=== PATIENT | female | born 1955 | race Caucasian/White ===

== ENCOUNTER 2017-07-01 15:22 | Emergency (ER) | payer MEDICARE, MEDICAID ==
[~2017-07-01] VITALS: Ht 144.8 cm; Wt 76.0 kg
[~2017-07-01 15:22] MED LIST: ENALAPRIL10 MG OR; LASIX 20 MG TAB20 MG OR; LEVOTHYROXIN88 MC1 PO; LIPITOR10 M1 PO; LORATADINE10 M1 PO; MEDDOSEPAK PO; SYNTHROID75 MCG OR; VITAMIN D50000 UNT OR
[2017-07-01] MEDS ORDERED: METO25TAB PO (15:38)
[2017-07-01] MEDS ORDERED: ASPIRINCHW 81MG PO (15:38)
[2017-07-01] MEDS ORDERED: AMMONIUM LACTATE121 TOP (15:40)
[2017-07-01] MEDS ORDERED: IBUPROFEN600 MG PO (17:10)
[2017-07-01 17:20] VITALS: BP 138/88
== END 2017-07-01 17:20 | disposition home or self-care (01) ==
LOC: ED 15:22
DX: K08.89 Other specified disorders of teeth and supporting structures (principal); W01.0XXA Fall on same level from slipping, tripping and stumbling without subsequent striking against object, initial encounter; Y93.01 Activity, walking, marching and hiking; Y92.89 Other specified places as the place of occurrence of the external cause

== ENCOUNTER 2017-08-14 17:52 | Emergency (ER) | payer MEDICARE, MEDICAID ==
[~2017-08-14] VITALS: Ht 144.8 cm; Wt 76.0 kg
[~2017-08-14 17:52] MED LIST changes: +AMMONIUM LACTATE121 TOP; +ASPIRINCHW 81MG PO; +IBUPROFEN600 MG PO; +METO25TAB PO
[2017-08-14 20:53] LABS: HEMATOCRIT 42.1 % (37.0-47.0); HEMOGLOBIN 14.5 g/dl (12.0-16.0); IMMATURE GRANULOCYTES 1.1 % (0.0-1.0); MEAN CELL VOLUME 91.9 fL CALC (80.0-100.0); MEAN CORPUSCULAR HGB 31.7 pG CALC (26.0-32.0); MEAN CORPUSCULAR HGB CONC 34.4 g/L CALC (32.0-36.0); NEUT# 5.3 thou/uL (2.00-7.15); RED BLOOD COUNT 4.58 mill/uL (4.20-5.60)
[2017-08-14 21:18] LABS: ALBUMIN 3.8 g/dL (3.2-5.0); ALKALINE PHOSPHATASE 136 u/l (38-126); BILIRUBIN, TOTAL 0.2 mg/dL (0.0-1.4); BUN 17 mg/dL (8-23); BUN/CREATININE RATIO 24 (12-20 (CALC)); CARBON DIOXIDE 22 mmol/l (22-30); CHLORIDE 96 mmol/l (95-108); CREATININE 0.7 mg/dL (0.5-1.0); GFR > 60 ML/MIN (>=60 (CALC)); GFR FOR AFR.AMER. > 60 ML/MIN (>=60 (CALC)); POTASSIUM 4.4 mmol/l (3.5-5.1); SGOT/AST 32 u/l (9-36); SGPT/ALT 37 u/l (11-66); TOTAL PROTEIN 7.3 g/dL (6.3-8.2)
[2017-08-14 21:21] LABS: ANION GAP 16 (6-22 (CALC)); SODIUM 130 mmol/l (137-146)
[2017-08-14 21:29] LABS: URINE BILIRUBIN - DIPSTICK NEGATIVE (NEGATIVE); URINE BLOOD DIPSTICK NEGATIVE (NEGATIVE); URINE COLOR YELLOW; URINE GLUCOSE - DIPSTICK NEGATIVE (NEGATIVE); URINE KETONE NEGATIVE (NEGATIVE); URINE LEUK ESTERASE NEGATIVE (NEGATIVE); URINE NITRITE - DIPSTICK NEGATIVE (Negative); URINE PH 6.5 (4.5-8.0); URINE PROTEIN - DIPSTICK NEGATIVE (NEG-TRACE); URINE SPECIFIC GRAVITY 1.015; URINE UROBILINOGEN - DIPSTICK 0.2 E.U./dL (0.2)
[2017-08-14 21:30] LABS: URINE CLARITY CLEAR
[2017-08-14 21:55] VITALS: BP 149/76
== END 2017-08-14 21:55 | disposition home or self-care (01) ==
LOC: ED 17:52
PROVIDERS: Emergency Medicine
DX: R53.1 Weakness (principal); Q90.9 Down syndrome, unspecified; I10 Essential (primary) hypertension; R10.84 Generalized abdominal pain

== ENCOUNTER 2018-05-11 18:31 | Emergency (ER) | payer MEDICARE, MEDICAID ==
[~2018-05-11] VITALS: Ht 144.8 cm; Wt 73.0 kg
[~2018-05-11 18:31] MED LIST changes: +VITAMIN D50000 UNIT PO; -VITAMIN D50000 UNT OR
[2018-05-11] MEDS ORDERED: MIRTAZAPINE15 MG PO (19:36)
[2018-05-11] MEDS ORDERED: KEFLEX500 MG PO (19:36)
[2018-05-11 20:00] VITALS: BP 174/84
[2018-05-11] MEDS ORDERED: ZOLPIDEM5 M1 PO (20:04)
[2018-05-11] MEDS ORDERED: LEVOTHYROXIN75 MC1 PO (20:05)
[2018-05-11] MEDS ORDERED: ATORVASTATIN CA20 MG PO (20:07)
[2018-05-11] MEDS ORDERED: CELECOXIB200 MG PO (20:08)
== END 2018-05-11 20:00 | disposition home or self-care (01) ==
LOC: ED 18:31
DX: S80.862A Insect bite (nonvenomous), left lower leg, initial encounter (principal); W57.XXXA Bitten or stung by nonvenomous insect and other nonvenomous arthropods, initial encounter; Y92.009 Unspecified place in unspecified non-institutional (private) residence as the place of occurrence of the external cause

== ENCOUNTER 2018-07-15 12:40 | Inpatient (IN) | payer MEDICARE, MEDICAID ==
[~2018-07-15] VITALS: Ht 144.8 cm; Wt 82.0 kg
[~2018-07-15 12:40] MED LIST changes: +ATORVASTATIN CA20 MG PO; +CELECOXIB200 MG PO; +KEFLEX500 MG PO; +LEVOTHYROXIN75 MC1 PO; +MIRTAZAPINE15 MG PO; +ZOLPIDEM5 M1 PO
--- NOTE | 2018-07-15 12:40 | NUR ---
TO ROOM 11 VIA STRETCHER BY EMS
--- NOTE | 2018-07-15 13:15 | NUR ---
CAREGIVER REPORTS PT IS DIFFICULT TO OBTAIN USRINE SPECIMENS FORM. IT TOOK 2 DAYS TO GET ONE FOR HER PRIMARY CARE PROVIDER- JUST TAKEN THERE A COUPLE OF DAYS AGO. IS ON ANTIBIOTICS FOR UTI
[2018-07-15] MEDS ORDERED: TERBINAFINE250 MG PO (13:21)
[2018-07-15] MEDS ORDERED: MEMANTINE HCL10 MG PO (13:22)
[2018-07-15] MEDS ORDERED: Levaquin PO (13:23)
[2018-07-15 13:28] LABS: IMMATURE GRANULOCYTES 0.7 % (0.0-5.0); MEAN CELL VOLUME 94.6 fL CALC (80.0-100.0); MEAN CORPUSCULAR HGB CONC 33.8 g/L CALC (32.0-36.0); NEUT# 3.92 thou/uL (2.00-7.15); RED BLOOD COUNT 3.91 mill/uL (4.20-5.60); RED CELL DISTRI WIDTH 14.3 % (11.5-15.5)
--- NOTE | 2018-07-15 13:41 | NUR ---
DID NOT GIVE ZOFRAN. ENTERED ON WRONG PT.
[2018-07-15 13:45] LABS: HEMOGLOBIN 12.5 g/dl (12.0-16.0)
--- NOTE | 2018-07-15 13:45 | NUR ---
SAID SHE DOESN'T NEED TO PEE
[2018-07-15 14:09] LABS: ALKALINE PHOSPHATASE 113 u/l (38-126); ANION GAP 14 (6-22 (CALC)); BILIRUBIN, TOTAL 0.3 mg/dL (0.0-1.4); BUN 24 mg/dL (8-23); BUN/CREATININE RATIO 22 (12-20 (CALC)); CARBON DIOXIDE 26 mmol/l (22-30); CHLORIDE 100 mmol/l (95-108); CREATININE 1.1 mg/dL (0.5-1.0); GFR 50 ML/MIN (>=60 (CALC)); GFR FOR AFR.AMER. > 60 ML/MIN (>=60 (CALC)); LIPASE 43 u/l (23-300); POTASSIUM 4.2 mmol/l (3.5-5.1); SGOT/AST 76 u/l (9-36); SODIUM 135 mmol/l (137-146); TOTAL PROTEIN 6.1 g/dL (6.3-8.2)
--- NOTE | 2018-07-15 14:15 | NUR ---
PT STATES SHE IS UNABLE TO VOID. ENTERTAINMENT PRODUCTION PROFESSIONAL REQUESTED STRAIGHT CATH NOT BE DONE DUE TO THE AMOUNT OF EMOTIONALTRAUMA
--- NOTE | 2018-07-15 15:02 | NUR ---
WINDOWS SYSTEMS ENGINEER SAID THAT SHE SEEMS MORE HER NORMAL SELF SINCE ARRIVAL IN ER.... COLOR HAS IMPROVED AND MORE ALERT. SHE REPORTS ALZHEIMERS IS PROGRESSING TO THE POINT THAT SHE NEEDS 2 PERSON ASSIST WITH AMBULATION
--- NOTE | 2018-07-15 15:39 | NUR ---
BEDRESTING-SITTING UP-WATCHING TV
--- NOTE | 2018-07-15 15:45 | NUR ---
PT DID NOT WANT CHANGE TO HOSPITAL GOWN. SHE WANTS TO KEEP HER OWN CLOTHES ON.
--- NOTE | 2018-07-15 16:43 | NUR ---
CAREGIVER ASKED THAT PT NOT GO TO CT SCAN THE TABLE MOVES AND PT BECOMES AFRAID AND JUMPS OFF OF THE TABLE. SHE ONLY AGREED IF PT COULD BE SEDATED. DR TAPIA NOTIFIED
--- NOTE | 2018-07-15 16:51 | NUR ---
REPORT CALLED TO ROYAL PETERSEN
--- NOTE | 2018-07-15 17:12 | NUR ---
TO MS VIA STRETCHER
[2018-07-15 17:18] VITALS: BP 110/70
--- NOTE | 2018-07-15 17:20 | NUR ---
PT ARRIVED @ 1720, VIA STRETCHER, ACCOMPANINED BY TWO ER STAFF AND WOOD AND HARDWARE OUTFITTER, CAROLYN; PT SCREAMED DURING TRF FROM BED TO STRETCHER; MENTALLY CHALLENGE; RESP EVEN AND UNLABORED; ROOM AIR; TELE ON PLACE; VITALS STABLE; #20LAC, ZOSYN INFUSING WITHOUT DIFFICULTY; RASH NOTED TO BILAT ABD FOLDS; PICTURES TAKEN; NON PRODUCTIVE COUGH NOTED; +2 EDEMA TO BLE; ACTIVE BS; CALL JIMENEZ IN REACH; SEAN/CARD DOFFER WILL SPEND THE NIGHT WITH PT. NOW FEEDING PT.
[2018-07-15 19:37] VITALS: BP 101/57
--- NOTE | 2018-07-16 | NUR ---
PT AWAKE AT THIS TIME. LOOKING AROUNF THE ROON. NO NEEDS AT THIS TIME. CALL JIMENEZ IN REACH. WILL CONTINUE TO MONITOR.
[2018-07-16 00:11] LABS: URINE BILIRUBIN - DIPSTICK NEGATIVE (NEGATIVE); URINE BLOOD DIPSTICK NEGATIVE (NEGATIVE); URINE COLOR YELLOW; URINE GLUCOSE - DIPSTICK NEGATIVE (NEGATIVE); URINE KETONE NEGATIVE (NEGATIVE); URINE LEUK ESTERASE NEGATIVE (Negative); URINE NITRITE - DIPSTICK NEGATIVE (Negative); URINE PROTEIN - DIPSTICK NEGATIVE (NEG-TRACE); URINE UROBILINOGEN - DIPSTICK 0.2 E.U./dL (0.2)
[2018-07-16 00:14] LABS: URINE CLARITY CLEAR
[2018-07-16 00:47] VITALS: BP 107/70
--- NOTE | 2018-07-16 02:00 | NUR ---
PT RESTING IN BED WITH EYES CLOSED . NO NEEDS ATT THIS TIME. CALL JIMENEZ IN REACH. WILL CONTIUNE TO [facility].
--- NOTE | 2018-07-16 04:00 | NUR ---
PT RESTING IN BED WITH EYES CLOSED. SITTING UP AND HUNCHED FORWARD TO SLEEP. CAREGIVER SAYS THAT IS HOW SHE SLEEPS. NO S/S OF DISTRESS NOTED. CALL JIMENEZ IN REACH. WILL CONTINUE TO MONITOR.
[2018-07-16 04:22] VITALS: BP 105/65
[2018-07-16 05:31] LABS: HEMATOCRIT 35.9 % (37.0-47.0); HEMOGLOBIN 11.7 g/dl (12.0-16.0); IMMATURE GRANULOCYTES 1.9 % (0.0-5.0); MEAN CELL VOLUME 96.8 fL CALC (80.0-100.0); MEAN CORPUSCULAR HGB 31.5 pG CALC (26.0-32.0); MEAN CORPUSCULAR HGB CONC 32.6 g/L CALC (32.0-36.0); NEUT# 3.21 thou/uL (2.00-7.15); RED BLOOD COUNT 3.71 mill/uL (4.20-5.60); RED CELL DISTRI WIDTH 14.1 % (11.5-15.5)
[2018-07-16 05:34] LABS: ALKALINE PHOSPHATASE 110 u/l (38-126); AMYLASE < 30 u/l (30-110); ANION GAP 12 (6-22 (CALC)); BILIRUBIN, TOTAL 0.3 mg/dL (0.0-1.4); BUN 21 mg/dL (8-23); BUN/CREATININE RATIO 21 (12-20 (CALC)); CARBON DIOXIDE 28 mmol/l (22-30); CHLORIDE 104 mmol/l (95-108); GFR 56 ML/MIN (>=60 (CALC)); GFR FOR AFR.AMER. > 60 ML/MIN (>=60 (CALC)); LIPASE 38 u/l (23-300); MAGNESIUM 2.1 mg/dL (1.6-2.3); POTASSIUM 4.2 mmol/l (3.5-5.1); SGOT/AST 70 u/l (9-36); SODIUM 139 mmol/l (137-146)
--- NOTE | 2018-07-16 07:13 | NUR ---
REPORT RECEIVED FROM NICOLA JUDD; PT APPEARS TO BE SLEEPING; RESP EVEN AND UNLABORED; ALMOND BLANCHER OPERATOR AT BEDSIDE STATED PT "JUST FELL ASLEEP"
[2018-07-16 09:29] VITALS: BP 141/73
--- NOTE | 2018-07-16 09:55 | NUR ---
PT SITTING UP IN BED; PRODUCTIVE COUGH NOTED; IVF FLOWING WITHOUT DIFFICULTY; VITALS OBTAINED; TEMP AXILLARY 91.4; BP 141/73 OBTAINED FROM R LEG; HR 60; RESP 20; O2 99 ON ROOM AIR; TELE IN PLACE; MEDICATED PER EMAR; TOLERATED WELL; BUNDLE SORTER AT BEDSIDE; CALL JIMENEZ IN REACH.
[2018-07-16 11:15] VITALS: BP 130/68
--- NOTE | 2018-07-16 11:15 | NUR ---
PT ASSISTED ON BSC, BILINGUAL OPERATOR AND GROUP FITNESS MANAGER AT BEDSIDE; NO S/S OF DISTRESS NOTED; CALL JIMENEZ IN REACH.
[2018-07-16 15:10] VITALS: BP 164/88
[2018-07-16 16:45] LABS: TSH, 3RD GENERATION 17.1 uIU/mL (0.47 - 4.68)
--- NOTE | 2018-07-16 17:22 | NUR ---
PT SITTING IN CHAIR WITH CARE WORKER BY HER SIDE; RESP EVEN AND UNLABORED; PRODUCTIVE COUGH NOTED; MEDICATED PER EMAR; IVF INFUSING WITHOUT DIFFICULTY; CALL JIMENEZ IN REACH.
[2018-07-16 19:00] VITALS: BP 139/91
--- NOTE | 2018-07-16 19:15 | NUR ---
RECEIVED REPORY FROM DAY NURSE. PT UP TO THE COUCH WITH MAIL MESSENGER CONTRACTOR. ASLEEP AT THIS TIME. NO NEEDS FROM PT OR MAIL MESSENGER CONTRACTOR. CALL JIMENEZ IN REACH. WILL CONTINUE TO MONITOR.
--- NOTE | 2018-07-16 20:30 | NUR ---
PT READY TO GET INTO BED. PT UP TO BSC TO VOID. DUE TO CONTINUE LOW TEMP. TYMPANIC 92.4, RECTAL TEMP DONE AT THIS TIME RECTAL TEMP 95.5. PT BACK INTO BED WITH MAXIMUM ASSIST. ALMA HUGGER APPLIED ON MEDIUM HEAT. ASSESMENT COMPLETED AT THIS TIME(SEE INTERVENTIONS) LUNG SOUNDS DIMINSHED, HEART SOUNDS NORMAL, BOWEL SOUNDS ACTIVE,TRACE EDEMA TO LOWER EXTREMITIES. IV INFUSING WELL. NO NEEDS AT THIS TIME. CALL JIMENEZ IN REACH. WILL CONTINUE TO MONITOR.
[2018-07-17] VITALS (8 sets, daily range): BP systolic 88–160; BP diastolic 40–79
--- NOTE | 2018-07-17 05:30 | NUR ---
PT CLEANED OF LARGE AMOUNT OF URINE. RECTAL TEMP CHECKED AT THIS TIME 98.4. ALMA HUGGER REMOVED AND PT REPOTITIONED IN BED. NO NEEDS AT THIS TIME. CALL JIMENEZ IN REACH. WILL CONTINUE TO MONITOR.
[2018-07-17 06:30] LABS: HEMATOCRIT 37.2 % (37.0-47.0); HEMOGLOBIN 11.9 g/dl (12.0-16.0); MEAN CELL VOLUME 98.2 fL CALC (80.0-100.0); MEAN CORPUSCULAR HGB 31.4 pG CALC (26.0-32.0); PLATELET COUNT 143 thou/uL (130-400); RED BLOOD COUNT 3.79 mill/uL (4.20-5.60); RED CELL DISTRI WIDTH 14.6 % (11.5-15.5)
[2018-07-17 06:46] LABS: ALKALINE PHOSPHATASE 99 u/l (38-126); ANION GAP 12 (6-22 (CALC)); BILIRUBIN, TOTAL 0.3 mg/dL (0.0-1.4); BUN 19 mg/dL (8-23); BUN/CREATININE RATIO 17 (12-20 (CALC)); CARBON DIOXIDE 24 mmol/l (22-30); CHLORIDE 108 mmol/l (95-108); CREATININE 1.1 mg/dL (0.5-1.0); GFR 50 ML/MIN (>=60 (CALC)); GFR FOR AFR.AMER. > 60 ML/MIN (>=60 (CALC)); POTASSIUM 4.6 mmol/l (3.5-5.1); SGOT/AST 51 u/l (9-36); SODIUM 140 mmol/l (137-146); TOTAL PROTEIN 6.2 g/dL (6.3-8.2)
[2018-07-17 06:56] LABS: IMMATURE GRANULOCYTES 9.3 % (0.0-5.0); MANUAL DIFFERENTIAL YES
--- NOTE | 2018-07-17 07:05 | NUR ---
REPORT RECEIVED FROM NICOLA JUDD; PT SITTING UP IN BED AWAKE; RESP EVEN AND UNLABORED ON ROOM AIR; WILLOW WORKER AT BED SIDE;
--- NOTE | 2018-07-17 09:24 | NUR ---
PT SITTING UP IN BED WATCHING TV; RESP EVEN AND UNLABORED ON ROOM AIR; VITALS OBTAINED TEMP 96.9, RESP 20, PULSE 82, BP 127/50, O2 97; MEDICATED PER EMAR; GENERALIZED EDEMA NOTED; IVF INFUSING WITHOUT DIFFICULTY; SITE APPEARS HEALTHY; TELE IN PLACE SB 57 ON MONITOR; PARTIAL BATH GIVEN; MOD INCONTINENT URINE; ASSIST TO SOFA; WARM BLANKET PROVIDED; POLYMERIZATION SUPERVISOR AT BEDSIDE; CALL JIMENEZ IN REACH
--- NOTE | 2018-07-17 11:52 | NUR ---
PT SITTING UP IN SOFA; IFV INFUSHING, ZOSYN HUNG; SITE APPEARS HEALTHY; RESP EVEN AND UNLABORED; MEDICATED PER EMAR; WINE PASTEURIZER AT BEDSIDE; VOICE NO CONCERNS;
--- NOTE | 2018-07-17 12:43 | NUR ---
PT ASSISTED TO BSC, JAMAR CARE PROVIDED; BACK INTO BED WITH MAX ASSIST; MIDDLE SCHOOL SPANISH TEACHER AT BEDSIDE; IVF INFUSING WITHOUT DIFFICULTY;
--- NOTE | 2018-07-17 14:20 | NUR ---
PT IN BED RESTLESS MEDICATED WITH LORAZEPAM FOR MIDLINE PROCEDURE; PT TOLERATED WELL; AREA OPERATIONS MANAGER AT BEDSIDE
--- NOTE | 2018-07-17 14:55 | NUR ---
IN TO ATTEMPT MID-LINE PLACEMENT. UNABLE TO ADVANCE GUIDEWIRE THROUGH EXISTING HUB, SO CLEANED AND EXCHANGED HUB. RELABELED. FLUSHED EASILY /c BRISK BLOOD RETURN NOTED. WELL TOLERATED. Pt SCHEDULED TO GO TO Radiology IN A.M. FOR NEW PICC/MID-LINE.
--- NOTE | 2018-07-17 16:48 | NUR ---
ER TELE MONITOR CENTER CALLED ON PT'S LOW HR; DR SANTOS AWARE; HR NOW IN THE 60'S; NO S/S OF DISTRESS NOTED; ALCOHOL RUBBER AT BEDSIDE
--- NOTE | 2018-07-17 16:48 | NUR ---
PT APPEARS TO BE SLEEPING; RESP EVEN AND UNLABORED; TEMP 97.3 HR 60; MEDICATED PER EMAR; IV FOUND PARTIAL DISLODGE, LEAKING; REMOVE, CATH TIP INTACT; SITE APPEARS HEALTHY; ORDER FOR PIC LINE TOMORROW; DR SANTOS AWARE
--- NOTE | 2018-07-17 19:00 | NUR ---
RECEIVED REPORT FROM NURSE PAIGE, PATIENT IN BED, AWAKE NO DISCOMFORTS NOTED AT THIS TIME, CURRENTLY WATCHING MOVIE, SITTER WITH PATIENT, CALL LIGHT AT REACH
--- NOTE | 2018-07-17 20:00 | NUR ---
PATIENT ALERT TO SELF, DENIES PAIN OR DISCOMFORT AT THIS TIME, EVEN UNLABORED BREATHING ON TELE, WITH AN ONGOING IVF OF 0.9NACL X100CC/HR, INFUSING WELL ON RT ARM, SITTER WITH PATIENT, CALL LIGHT WITHIN REACH.
[2018-07-18] VITALS (7 sets, daily range): BP systolic 130–161; BP diastolic 68–88
--- NOTE | 2018-07-18 00:08 | NUR ---
PATIENT RESTING IN BED, NO DISCOMFORTS NOTED AT THIS TIME, WAS AGITATED EARLIER DURING CARE, CALMED DOWN AFTER CARE WAS GIVEN, CURRENTLY WATCHING CARTOONS, ORACLE HRMS DEVELOPER IN ROOM, WILL CONTINUE TO MONITOR.
--- NOTE | 2018-07-18 04:04 | NUR ---
RECEIVED A CALL FROM ED PATIENT HEART RATE WAS 36-37 THEN TO 49. PATIENT WAS SLEEPING AT THIS TIME, V/S TAKEN BP 148/82, HR 60, R19, TEMP 97.6. PATIENT WAS ASYMPTOMATIC. WILL CONTINUE TO MONITOR.
--- NOTE | 2018-07-18 04:51 | NUR ---
PATIENT RESTING IN BED, NO DISCOMFORTS NOTED AT THIS TIME, EVEN LABORED BREATHING, TELE READING SB 43. CONVERTING SUPERVISOR IN ROOM, WILL CONTINUE TO MONITOR.
[2018-07-18 05:45] LABS: HEMATOCRIT 33.1 % (37.0-47.0); HEMOGLOBIN 10.8 g/dl (12.0-16.0); MEAN CELL VOLUME 97.1 fL CALC (80.0-100.0); MEAN CORPUSCULAR HGB 31.7 pG CALC (26.0-32.0); MEAN CORPUSCULAR HGB CONC 32.6 g/L CALC (32.0-36.0); PLATELET COUNT 154 thou/uL (130-400); RED BLOOD COUNT 3.41 mill/uL (4.20-5.60); RED CELL DISTRI WIDTH 14.5 % (11.5-15.5)
[2018-07-18 05:59] LABS: ALKALINE PHOSPHATASE 88 u/l (38-126); ANION GAP 12 (6-22 (CALC)); BILIRUBIN, TOTAL 0.2 mg/dL (0.0-1.4); BUN 21 mg/dL (8-23); BUN/CREATININE RATIO 18 (12-20 (CALC)); CARBON DIOXIDE 25 mmol/l (22-30); CHLORIDE 108 mmol/l (95-108); CREATININE 1.1 mg/dL (0.5-1.0); GFR 50 ML/MIN (>=60 (CALC)); GFR FOR AFR.AMER. > 60 ML/MIN (>=60 (CALC)); MAGNESIUM 2.1 mg/dL (1.6-2.3); POTASSIUM 4.4 mmol/l (3.5-5.1); SGOT/AST 35 u/l (9-36); SODIUM 141 mmol/l (137-146); TOTAL PROTEIN 5.9 g/dL (6.3-8.2)
[2018-07-18 06:17] LABS: BAND 2 % (0-8); IMMATURE GRANULOCYTES 6.1 % (0.0-5.0); MANUAL DIFFERENTIAL YES
--- NOTE | 2018-07-18 06:24 | NUR ---
ER CALLED ABOUT PATIENTS HR DROPPING TO 35-36 BPM BUT NOT SUSTAINED PATIENT CURRENTLY SLEEPING, MANUALLY TOOK HR WAS AT 53 BPM AT THIS TIME, PER DAY SHIFT REPORT PATIENT WAS INTERMITTENTLY HAVING LOW HR AND DR IS ALREADY AWARE. WILL CONTINUE TO MONITOR.
--- NOTE | 2018-07-18 06:57 | NUR ---
CALLED DR. SANTOS ABOUT PATIENTS INTERMITTENT LOW HR, CURRENT HR 54BPM MANUALLY. NO NEW ORDERS MADE AT THIS TIME,
--- NOTE | 2018-07-18 07:10 | NUR ---
REPORT RECIEVED FROM IVONNE COLLAZO. PT IN BED RESTING. NO S/S OF DISTRESS. CALL LIGHT IN REACH. WILL CONTINUE TO MONITOR.
--- NOTE | 2018-07-18 08:45 | NUR ---
PT A/O X3. SPEECH IS SLIGHTLY GARBLED. RESP EVEN AND UNLABORED. LUNG SOUNDS DIMINSHED. NONPRODUCTIVE COUGH NOTED. TELE IN PLACE. BOWEL SOUNDS ACTIVE X4. STRONG RADIAL PULSES, WEAK PEDAL PULSES. #24 DAVIE NS @100. SITE APPEARS HEALTHY. +1 GENERALIZED EDEMA NOTED. ENCOURAGED ELEVATION OF EXTREMITIES. PT DENIES ANY PAIN OR NEEDS. CAREGIVER AT BEDSIDE. SAFETY PRECAUTIONS IN PLACE. CALL LIGHT IN REACH. WILL CONTINUE TO MONITOR.
--- NOTE | 2018-07-18 11:57 | NUR ---
PT RESTING IN BED. NO C/O PAIN OR NEEDS. CALL LIGHT IN REACH. CAREGIVER AT BEDISDE. WILL CONTINUE TO MONITOR.
--- NOTE | 2018-07-18 13:19 | NUR ---
PT APPEARS TO BE SLEEPING IN BED; RESP EVEN AND UNLABORED; CARDIOVASCULAR DISEASE SPECIALIST AT BEDSIDE; CALL JIMENEZ IN REACH.
--- NOTE | 2018-07-18 16:32 | NUR ---
PT SLEEPING IN BED. NO C/O PAIN OR NEEDS. CAREGIVER AT BEDSIDE. CALL LIGHT IN REACH. WILL CONTINUE TO MONITOR
--- NOTE | 2018-07-18 19:30 | NUR ---
REPORT GIVEN BY KRUNAL GORE. PATIENT AWKAE IN BED WATCHING TV WITH CAREGIVER PRESENT AT THE BEDSIDE. RESP EVEN AND UNLABORED, O2 2L VIA NC . LUNG SOUNDS DIMINISHED, BOWEL SOUNDS PRESENT, AND PULSES PRESENT X 4. PICC LINE DRESSING INTACT, NO REDNESS OR SWELLING PRESENT WITH IV FLUIDS INFUSING AT 100 ML/HR. GENERAL EDEMA PRESENT. PLAN OF CARE DISCUSSED WITH CAREGIVER. BOTH PATIENT AND CAREGIVER INFORMED TO CALL WITH ANY QUESTIONS OR CONCERNS.
--- NOTE | 2018-07-18 20:20 | NUR ---
HS MEDICATIONS GIVEN AND NEW BAG OF IV FLUIDS GIVEN. PATIENT TOLERATED WELL.
--- NOTE | 2018-07-18 23:31 | NUR ---
PATIENT RESTING IN BED AWAKE WATCHING TV. PATIENT'S FACE IS FLUSHED, TEMP TAKEN WAS 97.7. PATIENT WAS CLEANED UP AND PERICARE WAS PROVIDED. RESP EVEN AND UNLABORED. NO S/S OF DISTRESS NOTED.
--- NOTE | 2018-07-19 03:36 | NUR ---
PATIENT RESTING WITH EYES CLOSED. RESP EVEN AND UNLABORED. NO S/S OF DISTRESS NOTED. CAREGIVER AT BEDISDE.
[2018-07-19 04:50] VITALS: BP 178/82
[2018-07-19 04:52] LABS: HEMATOCRIT 33.9 % (37.0-47.0); HEMOGLOBIN 10.9 g/dl (12.0-16.0); MEAN CELL VOLUME 98.5 fL CALC (80.0-100.0); MEAN CORPUSCULAR HGB 31.7 pG CALC (26.0-32.0); MEAN CORPUSCULAR HGB CONC 32.2 g/L CALC (32.0-36.0); PLATELET COUNT 149 thou/uL (130-400); RED BLOOD COUNT 3.44 mill/uL (4.20-5.60); RED CELL DISTRI WIDTH 14.8 % (11.5-15.5)
[2018-07-19 05:13] LABS: BILIRUBIN, TOTAL 0.2 mg/dL (0.0-1.4); CREATININE 1.2 mg/dL (0.5-1.0); MAGNESIUM 2.1 mg/dL (1.6-2.3)
[2018-07-19 05:20] LABS: IMMATURE GRANULOCYTES 13.2 % (0.0-5.0)
[2018-07-19 05:21] LABS: BAND 2 % (0-8); MANUAL DIFFERENTIAL YES
[2018-07-19 05:53] VITALS: BP 155/80
[2018-07-19 07:50] VITALS: BP 150/69
--- NOTE | 2018-07-19 07:50 | NUR ---
ASSESSMENT IS COMPLETED: PT SI RELAXING IN BED CAREGIVER IN THE ROOM. IV SITE IS FREE FROM REDNESS OR EDEMA. HR IS REG,PULSES ARE STRONG X4, ABD IS SOFT WITH ACTIVE BS. TELE MONITOR IN PLACE. CONTINUE TO OSBERVE AND MONITOR.
--- NOTE | 2018-07-19 11:10 | NUR ---
IN TO VISIT WITH PT. WILL KEEP ONE MORE DAY , WILL TRY AND SEND HOME TOMORROW CONTINUE TO OBSERVE AND MONITOR
[2018-07-19 11:57] VITALS: BP 167/81
--- NOTE | 2018-07-19 12:30 | NUR ---
PT IS SITTING ON THE BSC, CAREGIVER IN THE ROOM. IV SITE IS FREE FROM REDNESS OR EDEMA. CONTINUE TO OSBERVE AND MONITOR.
[2018-07-19 15:33] VITALS: BP 155/87
--- NOTE | 2018-07-19 16:15 | NUR ---
PT IS WATCHING TV WITH CAREGIVER. IV SITE IS FREE FROM REDNESS OR EDEMA.
--- NOTE | 2018-07-19 19:10 | NUR ---
BEDSIDE REPORT RECEIVED FROM NICOLA LOREDO. PT SITTING UP WATCHING A MOVIE WITH CAREGIVER AT BEDSIDE. PT ALERT WITH NORMAL MENTATION FOR HER. RESPIRATIONS EVEN AND UNLABORED ON ROOM AIR. BLOOD PRESSURE ELEVATED. PLAN OF CARE REVIEWED WITH PT AND MUSEUM TOUR GUIDE. ENCOURAGED TO VERBALIZE CONCERNS. STATES UNDERSTANDING. SAFETY MEASURES IN PLACE. CALL LIGHT WITHIN REACH.
[2018-07-19 19:45] VITALS: BP 186/87
--- NOTE | 2018-07-19 20:45 | NUR ---
NEW ORDERS RECEIVED FROM DR. SANTOS FOR ELEVATED BLOOD PRESSURE; AMLODIPINE GIVEN AT THIS TIME; WILL REASSESS BP. NYSTATIN POWDER ALSO APPLIED UNDER ABDOMINAL FOLDS; MILD REDNESS PRESENT, BUT NOODLE PRESS OPERATOR STATES THAT IT IS MUCH IMPROVED.
[2018-07-20 00:05] VITALS: BP 178/92
--- NOTE | 2018-07-20 00:47 | NUR ---
PT AWAKE AND ALERT; CAREGIVER REMAINS AT BEDSIDE. SCHEDULED ROBITUSSIN GIVEN FOR COUGH. IV FLUIDS INFUSING WITHOUT DIFFICULTY; DAVIE PICC LINE DRESSING CDI AND APPEARS HEALTHY; FLUSHES WITH GOOD BLOOD RETURN. ABT INFUSING NOW. INCONTINENT OF LARGE AMOUNT OF URINE AND LINENS CHANGED. ONLY REQUEST AT THIS TIME IS COLORING BOOK AND SLINKY FROM HOME. SAFETY MEASURES IN PLACE. CALL LIGHT WITHIN REACH.
--- NOTE | 2018-07-20 01:19 | NUR ---
BLOOD PRESSURE REMAINS ELEVATED; ULTRAM GIVEN FOR GENREALIZED DISCOMFORT. WILL REASSESS BP.
--- NOTE | 2018-07-20 02:00 | NUR ---
TELE MONITOR NOTIFIED NURSE THAT HEART RATE DECREASED TEMPORARILY INTO THE 30'S; PT IS SLEEPING AND ASYMPTOMATIC.
[2018-07-20 02:30] VITALS: BP 155/90
--- NOTE | 2018-07-20 02:45 | NUR ---
BLOOD PRESSURE IMPROVED. PT ASSISTED TO BSC BY INJECTION MOLDING PROCESS TECHNICIAN TO VOID. PT SHOUTS DURING CARE; CAREGIVER OF 15 YEARS STATES THAT THIS IS NORMAL BEHAVIOR WHEN SHE IS RECEIVING CARE. PT FREQUENTLY ASKS, "IS THIS GOING TO HURT?" PT FREQUENTLY REASSURED AND SHE SMILES AND STATES, "I LOVE YOU."
[2018-07-20 04:15] VITALS: BP 134/81
--- NOTE | 2018-07-20 04:21 | NUR ---
PT ASLEEP AT THIS TIME WITH NO SIGNS OF DISTRESS. RESPIRATIONS EVEN AND UNLABORED ON ROOM AIR. SAFETY MEASURES IN PLACE. CALL LIGHT WITHIN REACH.
--- NOTE | 2018-07-20 06:00 | NUR ---
0600 MEDICATIONS ADMINISTERED; PT TOOK WELL. DAVIE SINGLE LUMEN PICC LINE FLUSHED; NO BLOOD RETURN AT THIS TIME. SITE HAS SOME BRUISING AROUND INSERTION SITE. ARM DOES NOT APPEAR SWOLLEN OR LARGER IN COMPARISION TO LEFT UPPER ARM.
--- NOTE | 2018-07-20 07:38 | NUR ---
REPORT RECEIVED FROM IVONNE GUAN; PT SITTING UP ON BSC; RESP EVEN AND UNLABRED; WILLOWER AND FISH PROCESSING SUPERVISOR AT BED SIDE;
[2018-07-20 09:29] VITALS: BP 123/78
--- NOTE | 2018-07-20 09:36 | NUR ---
PT SITTING UP IN CHAIR WATCHING A MOVIE; TELE IN PLACE; IVF NS @100 INFUSING WITHOUT DIFFICULTY; SITE APPEARS HEALTHY; TRACE EDEMA NOTED TO BLE; NO S/S OF DISTRESS NOTED; MEDICATED PER EMAR; ELEVATOR TROUBLESHOOTER AT BEDSIDE; WILL CONTINUE TO MONITOR.
--- NOTE | 2018-07-20 11:39 | NUR ---
DR SANTOS AT BEDSIDE TO DISCUSS POC; SWITCH COUPLER AT BEDSIDE; MEDICATED PER EMAR;
[2018-07-20 12:00] VITALS: BP 138/76
[2018-07-20] MEDS ORDERED: DOXYCYCL HYC100 MG PO (14:55)
--- NOTE | 2018-07-20 15:32 | NUR ---
DC INSTRUCTIONS GIVEN TO TEACHER OF FAMILY AND CONSUMER SCIENCE; IVONNE CAMPBELL REMOVED MIDLINE, CATH TIP INTACT; TOLERATED WELL; ALL BELONGINS SENT WITH PT; LEFT VIA W/C BY PRACTICE ASSISTANT AND TEACHER OF FAMILY AND CONSUMER SCIENCE IN STABLE CONDITION;
== END 2018-07-20 15:37 | DRG 193 ==
LOC: ED 12:40 → ED-I 15:31 → ED 15:42 → MS2 15:43
PROVIDERS: Family Medicine; Nurse Practitioner Family; ADMIT Internal Medicine Nephrology; ATTEND Internal Medicine Nephrology
PROC: 05HB33Z Insertion of Infusion Device into Right Basilic Vein, Percutaneous Approach (ICD-10-PCS; principal; 2018-07-18)
PROC: B51MYZA Fluoroscopy of Right Upper Extremity Veins using Other Contrast, Guidance (ICD-10-PCS; 2018-07-18)
DX: J18.9 Pneumonia, unspecified organism (principal); G93.41 Metabolic encephalopathy; N17.9 Acute kidney failure, unspecified; I12.9 Hypertensive chronic kidney disease with stage 1 through stage 4 chronic kidney disease, or unspecified chronic kidney disease; N18.3 Chronic kidney disease, stage 3 (moderate); Q90.9 Down syndrome, unspecified; I95.9 Hypotension, unspecified; G30.0 Alzheimer's disease with early onset; F02.80 Dementia in other diseases classified elsewhere, unspecified severity, without behavioral disturbance, psychotic disturbance, mood disturbance, and anxiety; E03.9 Hypothyroidism, unspecified; E78.5 Hyperlipidemia, unspecified; E83.51 Hypocalcemia; I45.9 Conduction disorder, unspecified; Y95 Nosocomial condition
CPT/HCPCS: G0378; J1650; J2060

== ENCOUNTER 2018-08-23 11:27 | Observation (INO) | payer MEDICARE, MEDICAID ==
[~2018-08-23] VITALS: Ht 144.8 cm; Wt 85.0 kg
[~2018-08-23 11:27] MED LIST changes: +DOXYCYCL HYC100 MG PO; +Levaquin PO; +MEMANTINE HCL10 MG PO; +TERBINAFINE250 MG PO
--- NOTE | 2018-08-23 11:30 | NUR ---
PT ARRIVED VIA EMS IN NO DISTRESS. VERBALLY RESPONSIVE TO NAME. TONGUE PROTRUDING AND DRY MUSOUS MEMBRANES
--- NOTE | 2018-08-23 11:40 | NUR ---
THIS IS A FEMALE WITH HX OF DOWNS SYNDROE THAT COMES FOR WEAKNESS OF OVER 1 WEEK PER CAREGIVERS. PT HASNT BEEN TAKING MEDICATIONS FOR SEVERAL DAYS, CARE GIVERS ALSO STATES PT HAS HAD GENERALIZED WEAKNESS FOR OVER A MONTH SINCE COMING HOME FROM HOSPITAL A MONTH AGO WITH PNEUMONIA, STATES HASNT WANTED TO GET UP AND WALK OR FEED HERSELF. SHE IS COMING IN FOR SUSPECTED FAILURE TO THRIVE.
--- NOTE | 2018-08-23 11:45 | NUR ---
PEOPLE FROM [facility] STATES THEY DONT FEEL THAT PT IS WHERE SHE SHOULD BE, THEY THINK SHE NEEDS TO BE IN A HIGHER LEVEL CARE. STATES THEY HAVE BEEN TALKING TO SOMEONE ABOUT A [facility] OR HOSPICE BED BUT NOTHING HAS BEEN DECIDED YET.
[2018-08-23] MEDS ORDERED: ZOLPIDEM5 M1 PO (11:51)
[2018-08-23 11:58] LABS: HEMATOCRIT 38.9 % (37.0-47.0); HEMOGLOBIN 12.2 g/dl (12.0-16.0); IMMATURE GRANULOCYTES 2.9 % (0.0-5.0); MEAN CELL VOLUME 99.7 fL CALC (80.0-100.0); MEAN CORPUSCULAR HGB 31.3 pG CALC (26.0-32.0); MEAN CORPUSCULAR HGB CONC 31.4 g/L CALC (32.0-36.0); NEUT# 2.82 thou/uL (2.00-7.15); RED BLOOD COUNT 3.9 mill/uL (4.20-5.60)
--- NOTE | 2018-08-23 12:21 | NUR ---
PT RESTING QUIETLY ON STRETCHER, NO SIGNS OF DISTRESS NOTED AT THIS TIME
[2018-08-23 12:24] LABS: ALBUMIN 3.1 g/dL (3.2-5.0); BILIRUBIN, TOTAL 0.3 mg/dL (0.0-1.4); CREATININE 1.4 mg/dL (0.5-1.0); TOTAL PROTEIN 6.2 g/dL (6.3-8.2)
[2018-08-23 12:25] LABS: POTASSIUM 5.3 mmol/l (3.5-5.1)
--- NOTE | 2018-08-23 12:44 | NUR ---
CAREGIVERS REMAIN AT BEDSIDE. PT VERY UPSET AND YELLING WHEN TRYING TO OBTAIN URINE, BUT CALMED DOWN DIRECTLY AFTERWARDS. IV FLUIDS INFUSING
[2018-08-23 13:16] LABS: URINE BILIRUBIN - DIPSTICK NEGATIVE (NEGATIVE); URINE BLOOD DIPSTICK NEGATIVE (NEGATIVE); URINE COLOR YELLOW; URINE GLUCOSE - DIPSTICK NEGATIVE (NEGATIVE); URINE KETONE NEGATIVE (NEGATIVE); URINE LEUK ESTERASE NEGATIVE (NEGATIVE); URINE NITRITE - DIPSTICK NEGATIVE (Negative); URINE PH 5.5 (4.5-8.0); URINE PROTEIN - DIPSTICK NEGATIVE (NEG-TRACE); URINE UROBILINOGEN - DIPSTICK 0.2 E.U./dL (0.2)
--- NOTE | 2018-08-23 13:44 | NUR ---
PT RESTING QUIETLY ON STRETCHER, WARM BLANKET GIVEN, CALL LIGHT IN REACH, SIDE RAILS UP, VITAL SIGNS STABLE
--- NOTE | 2018-08-23 14:12 | NUR ---
SIPS OF WATER GIVEN PER PT REQUEST.
--- NOTE | 2018-08-23 15:51 | NUR ---
VITAL SIGNS REMAIN STABLE , CAREGIVERS UPDATED ABOUT ROOM STATUS, D5 1/2 INFUSING, PT WATCHING TV.
--- NOTE | 2018-08-23 16:25 | NUR ---
INFORMED CAREGIVER THAT PT IS TO BE NPO., SINCE THEY KEEP ASKING TO FEED HER OR GIVE HER SOMETHING TO DRINK. CAREGIVERS WILL SPEND THE NIGHT WITH PT.
--- NOTE | 2018-08-23 19:00 | NUR ---
AT BEDSIDE. PT RESTING. IV POSITIONAL. INFUSING IN RIGHT AC. SITE GOOD.
--- NOTE | 2018-08-23 20:09 | NUR ---
PT GIVEN WAS ON BEDPAN...WITH NO RESULTS. GIVEN BLANKET. PROVIDER AT BEDSIDE.
--- NOTE | 2018-08-23 20:21 | NUR ---
REPORT TO ROSALINDA/MED SURG
[2018-08-23 20:30] VITALS: BP 133/74
--- NOTE | 2018-08-23 20:30 | NUR ---
PT ARRIVED VIA STRETCHER ACCOMPAINED BY CAREGIVER AND ER STAFF. PT ALERT TO SELF WITH CONFUSION NOTED. REDDNESS NOTED TO SACRUM BARRIER CREAM APPLIED. SKIN INTACT. TRACE EDEMA NOTED IN BLE. IV SITE APPEARS HEALTHY WITH IV FLUIDS INFUSING WITHOUT DIFFICULTY. CAREGIVER ANSWERED QUESTIONS FOR ASSESSMENT. PT DENIES ANY PAIN OR DISCOMFORT. POC DISCUSSED. CALL LIGHT WITHIN REACH. WILL CONTINUE TO MONITOR.
--- NOTE | 2018-08-23 21:46 | NUR ---
COT PROVIDED TO CAREGIVER AT THIS TIME.
[2018-08-24 00:03] VITALS: BP 137/80
--- NOTE | 2018-08-24 01:23 | NUR ---
PT RESTING IN BED WITH EYES CLOSED. NO S/S OF DISTRESS NOTED. CAREGIVER AT BEDSIDE. CALL LIGHT WITHIN REACH. WILL CONTINUE TO MONITOR.
--- NOTE | 2018-08-24 04:15 | NUR ---
IV SITE APPEARS SWOLLEN. CATHETER INFILTRATED. PT TOUCHING TUBING PICKING AT DRESSING. IV SITE DISCONTINUED. ARM ELEVATED ON PILLOW AND WARM COMPRESS APPLIED. PT DENIES ANY PAIN OR DISCOMFORT. CRIES OUT IN FEAR, CALM REASSURANCE FOR NURSE AND CAREGIVER. NEW IV STARTED X1 ATTEMPT.PT TOLERATED WELL.
[2018-08-24 04:17] VITALS: BP 134/85
--- NOTE | 2018-08-24 06:10 | NUR ---
PT NOT VOID NOTED DURING SHIFT. BLADDER SCANNED SHOWING 750ML IN BLADDER. PT DOES NOT FEEL NEED TO VOID AT THIS TIME. NOTIFIED DR. SANTOS. NEW ORDER FOR SCHULER CATHETER. SCHULER CATHETER PLACED USING STERILE TECHNIQUE. 900ML OUT AT THIS TIME. PT TOLERATED WELL. WILL CONTINUE TO MONITOR.
[2018-08-24 07:27] VITALS: BP 140/82
--- NOTE | 2018-08-24 07:30 | NUR ---
REPORT RECEIVED FROM NICOLA TELLEZ. PT IN SEMI-FOWLERS. DENIES PAIN. REPORTING OF CONCERNS ENCOURAGED. MENTAL DELAY NOTED. CAREGIVER AT BEDSIDE TO ASSIST W/ COMFORT AND REASSSURANCE. PT RESISTANT TO QUESTIONING AND VS. PT RE-ORIENTED TO SITUATION.
[2018-08-24 08:09] LABS: HEMATOCRIT 38.4 % (37.0-47.0); HEMOGLOBIN 11.9 g/dl (12.0-16.0); IMMATURE GRANULOCYTES 2.1 % (0.0-5.0); NEUT# 3.45 thou/uL (2.00-7.15); RED BLOOD COUNT 3.84 mill/uL (4.20-5.60); RED CELL DISTRI WIDTH 15.7 % (11.5-15.5)
[2018-08-24 08:20] LABS: ALBUMIN 3.1 g/dL (3.2-5.0); ALKALINE PHOSPHATASE 121 u/l (38-126); AMYLASE 56 u/l (30-110); ANION GAP 14 (6-22 (CALC)); BILIRUBIN, TOTAL 0.2 mg/dL (0.0-1.4); BUN 31 mg/dL (8-23); BUN/CREATININE RATIO 28 (12-20 (CALC)); CARBON DIOXIDE 27 mmol/l (22-30); CHLORIDE 101 mmol/l (95-108); CREATININE 1.1 mg/dL (0.5-1.0); GFR 50 ML/MIN (>=60 (CALC)); GFR FOR AFR.AMER. > 60 ML/MIN (>=60 (CALC)); LIPASE 90 u/l (23-300); MAGNESIUM 2.1 mg/dL (1.6-2.3); POTASSIUM 4.5 mmol/l (3.5-5.1); SGOT/AST 34 u/l (9-36); SODIUM 136 mmol/l (137-146); TOTAL PROTEIN 6.3 g/dL (6.3-8.2)
--- NOTE | 2018-08-24 13:30 | NUR ---
DR. SANTOS IN TO SEE PT. CAREGIVER AT BEDSIDE. PLAN OF CARE UPDATED. HOSPICE CONSULT AGREED UPON.
[2018-08-24 16:05] VITALS: BP 115/51
--- NOTE | 2018-08-24 17:37 | NUR ---
DOUBLE END TRIMMER, ЕЛЕНА, AT BEDSIDE TO DISCUSS CONSULT [facility] SEAN.
--- NOTE | 2018-08-24 19:03 | NUR ---
REPORT FROM DEVORA CORONADO. PT NOTED TO BE SITTING UP IN BED WITH CAREGIVER IN ROOM. PT EATING FOOD CAREGIVER BROUGHT. IV SITE APPEARS HEALTHY WITH IVF INFUSING WITHOUT DIFFICULTY. SCHULER PATENT AND DRAINING TO GRAVITY. FLOATLIGHT LOADING SUPERVISOR IN PLACE. PT DENIES ANY PAIN OR DISCOMFORT. CALL LIGHT WITHIN REACH. WILL CONTINUE TO MONITOR.
[2018-08-24 19:28] VITALS: BP 128/71
--- NOTE | 2018-08-24 23:48 | NUR ---
PT SITTING UP IN BED. ALERT TO SELF. DENIES ANY PAIN OR DISCOMFORT. VS OBTAINED. IV FLUIDS INFUSING WITHOUT DIFFICULTY. IV SITE APPEARS HEALTHY. CALL LIGHT WITHIN REACH. WILL CONTINUE TO MONITOR.
[2018-08-24 23:49] VITALS: BP 131/78
[2018-08-25] VITALS (7 sets, daily range): BP systolic 105–171; BP diastolic 53–91
--- NOTE | 2018-08-25 01:09 | NUR ---
BED BATH AND LINEN CHANGE PROVIDED AT THIS TIME. PT TOLERATED WELL.
--- NOTE | 2018-08-25 05:26 | NUR ---
PT RESTING IN BED WITH EYES OPEN. CAREGIVER AT BEDSIDE. IVF INFUSING WITHOUT DIFFICULTY. CALL LIGHT WITHIN REACH. WILL CONTINUE TO MONITOR.
--- NOTE | 2018-08-25 08:00 | NUR ---
PT SITTING UP IN BED WITH EYES OPEN, ALERT TO SEFL; VITALS OBTAINED; IVF INFUSING WITHOUT DIFFICULTY, SITE APPEARS HEALTHY; RESPOITION PT; SCHULER DRAINING TO GRAVITY CLEAR, YELLOW URINE; TELE IN PLACE; SAND DIGGER AT BEDSIDE TRYING TO FEED PT; CALL JIMENEZ IN REACH; WILL CONTINUE TO MONITOR.
--- NOTE | 2018-08-25 10:55 | NUR ---
PT SITTING UP IN BED, ACADEMIC VICE PRESIDENT AT BEDSIDE OBTAINING VITALS; TAB MACHINE OPERATOR PRESENT; NO S/S OF DISTRESS NOTED; SCHULER PATENT DRAING CLEAR, YELLOW URINE; CALL JIMENEZ IN REACH.
--- NOTE | 2018-08-25 13:00 | NUR ---
PT SCREAMING, MEDICATED WITH ATIVAN; LG LOOSE BM; DID JAMAR CARE; SCHULER PATENT; AIRCRAFT PARTS ASSEMBLER AT BEDSIDE.
--- NOTE | 2018-08-25 15:37 | NUR ---
PT LAYING IN BED APPEARS TO BE SLEEPING; SHOP DIRECTOR AT BEDSIDE TO OBTAIN VITALS; SCHULER PATENT, DRAINING TO GRAVITY; SPARE PERSON PRESENT; NO S/S OF DISTRESS NOTED;
--- NOTE | 2018-08-25 19:00 | NUR ---
RECEIVED REPORT FROM DAY NURSE. PT ASLEEP AT THIS TIME. RESP EVEN AND UNLABORED. CALL JIMENEZ IN REACH. WILL CONTINUE TO MONITOR.
--- NOTE | 2018-08-25 21:19 | NUR ---
PT RESTING IN BED WITH EYES CLOSED. CAREGIVER AT BEDSIDE. WAKES TO VERBAL STIMULI. PT IS ORIENTED TO SELF ONLY. ASSESMENT COMPLETED AT THIS TIME. IV INFUSING WELL. SCHULER CATH DRAINING TO GRAVITY, CLEAR YELLOW URINE. NO NEEDS AT THIS TIME. CALL JIMENEZ IN REACH. WILL CONTINUE TO MONITOR.
--- NOTE | 2018-08-26 | NUR ---
PT RESTING IN BED WITH EYES CLOSED. NO S/S OF DISTRESS NOTED. CAREGIVER AT BEDSIDE. CALL JIMENEZ IN REACH. WILL CONTINUE TO MONITOR.
--- NOTE | 2018-08-26 04:00 | NUR ---
PT RESTING IN BED WITH EYES CLOSED. NO S/S OF DISTRESS NOTED. CAREGIVER AT BED SIDE.
[2018-08-26 05:13] VITALS: BP 112/57
--- NOTE | 2018-08-26 07:21 | NUR ---
REPORT RECEIVED FROM DUTCH; PT APPEARS TO BE SLEEPING WITH EYES CLOSED; OVERHEAD LINE WORKER PRESENT;
[2018-08-26 08:45] VITALS: BP 96/41
--- NOTE | 2018-08-26 09:04 | NUR ---
ASSESSMENT COMPLETED; PT SLEPT THROUGHOUT ASSESSMENT; TELE IN PLACE; IVF D5-1/2 @25CC/HR INFUSING WITHOUT DIFFICULTY; SITE APPEARS HEALTHY; SCHULER DRAINING TO GRAVITY, CLEAR, ELIANE URINE; LEG STRAP INTACT; NO S/S OF DISTRESS NOTED; CAREGIVER SLEEPING AT BEDSIDE. BED IN LOW LOCKED POSITION. WILL CONTINUE TO MONITOR.
--- NOTE | 2018-08-26 11:26 | NUR ---
PT APPEARS TO BE SLEEPING, RESP EVEN AND UNLABORED; COLOR MAKING SUPERVISOR AT BEDSIDE TO OBTAIN VITALS; SCHULER PATENT, DRAINING TO GRAVITY; IV SITE APPEARS HEALTHY; INDUSTRIAL WASTE INSPECTOR AT BEDSIDE.
[2018-08-26 15:49] VITALS: BP 114/64
--- NOTE | 2018-08-26 16:05 | NUR ---
PT SEEMS AWAKE, REPOSITION ON L SIDE; ORAL CARE PROVIDED; FLUIDS GIVEN BY FRUIT CULLER; PRODUCTIVE COUGH NOTED BUT NOT ABLE TO BRING UP ANY FLEM; IV PATENT; SCHULER EMPTIED 125CC CLEAR, ELIANE URINE; BOTTOM REDDENED BUT NOT OPEN, PICTURE TAKEN; WILL CONTINUE TO MONITOR.
--- NOTE | 2018-08-26 19:00 | NUR ---
RECEIVED REPORT FROM DAY NURSE. PT RESTING IN BED IN HIGH FOWLERS RESTING IN BED. CAREGIVER AT BED SIDE. NO S/S OF DISTRESS. WILL CONTINUE TO MONITOR.
--- NOTE | 2018-08-26 20:46 | NUR ---
PT RESTING IN BED. RESPONDS WHEN YOU ASK HER HOW SHE IS AND IF SHE NEEDS ANYTHING, CAREGIVER AT BEDSIDE. ASSESMENT COMPLETED AT THIS TIME. SCHULER CATH DRAINING CLEAR YELLOW URINE. IV INFUSING WELL. PT RESP. EVEN AND UNLABORED. NO NEEDS A THIS TIME. CALL JIMENEZ IN REACH. WILL CONTINUE TO MONITOR.
[2018-08-26 20:48] VITALS: BP 116/69
[2018-08-26 23:38] VITALS: BP 147/70
--- NOTE | 2018-08-27 00:51 | NUR ---
PT AGGITATED AND YELLING AFTER TURN AND MOUTH CARE. MEDICATED FOR AGITATION AT THIS TIME PER CAREGIVERS REQUEST. CALL JIMENEZ IN REACH. WILL CONTINUE TO MONITOR.
--- NOTE | 2018-08-27 04:00 | NUR ---
PT RESTING IN BED WITH EYES CLOSED. NO S/S OF DISTRESS NOTED. CALL JIMENEZ IN REACH. WILL CONTINUE TO MONITOR.
[2018-08-27 04:49] VITALS: BP 134/67
[2018-08-27 05:48] LABS: ANION GAP 9 (6-22 (CALC)); BUN 13 mg/dL (8-23); BUN/CREATININE RATIO 15 (12-20 (CALC)); CARBON DIOXIDE 28 mmol/l (22-30); CHLORIDE 101 mmol/l (95-108); CREATININE 0.9 mg/dL (0.5-1.0); GFR > 60 ML/MIN (>=60 (CALC)); GFR FOR AFR.AMER. > 60 ML/MIN (>=60 (CALC)); HEMOGLOBIN 10.4 g/dl (12.0-16.0); IMMATURE GRANULOCYTES 1.3 % (0.0-5.0); MAGNESIUM 1.9 mg/dL (1.6-2.3); MEAN CORPUSCULAR HGB 31.5 pG CALC (26.0-32.0); MEAN CORPUSCULAR HGB CONC 31.5 g/L CALC (32.0-36.0); NEUT# 6.45 thou/uL (2.00-7.15); RED BLOOD COUNT 3.3 mill/uL (4.20-5.60); RED CELL DISTRI WIDTH 15.3 % (11.5-15.5); SODIUM 134 mmol/l (137-146)
[2018-08-27 07:37] VITALS: BP 106/53
--- NOTE | 2018-08-27 07:38 | NUR ---
PT SITTING UP IN BED AWAKE, ABLE TO TELL GED TEACHER HER NAME, MONTH OF AND FAV COLOR; REPOSITION PT ON HER BACK; SCHULER PATENT DRAINING TO GRAVITY CLEAR, YELLOW URINE; IVF FLOWING WITHOUT DIFFICULTY, D5-1/2; SITE APPEARS HEALTHY; PT DRANK 120CC JUICE; NO S/S OF DISTRESS NOTED; WILL CONTINUE TO MONITOR.
--- NOTE | 2018-08-27 11:01 | NUR ---
PT SITTING UP IN BED; RESP EVEN AND UNLABORED ON ROOM AIR; COPY CLERK AT BEDSIDE TO OBTAIN VITALS; SCHULER DRAINING TO GRAVITY; IVF INFUSING FREELY; BED IN LOW LOCKED POSITION; VEGETABLE INSPECTOR AT BEDSIDE;
[2018-08-27 12:00] VITALS: BP 127/65
--- NOTE | 2018-08-27 12:01 | NUR ---
PT SITTING UP IN BED, CAREGIVER AT BEDSIDE TRYING TO FEED PT; PT REMAINS ALERT; MEDICATED PER EMAR; IVF PATENT ADN INFUSING WELL; BED IN LOW LOCK POSITION; WILL CONTINUE TO MONITOR.
[2018-08-27 15:05] VITALS: BP 133/64
--- NOTE | 2018-08-27 15:23 | NUR ---
PT APPEARS TO BE SLEEPING, RESP EVEN AND UNLABORED; SCHULER PATENT, DRAINING TO GRAVITY; NO DISTRESS NOTED; GLASS PRESSER AT BEDSIDE.
--- NOTE | 2018-08-27 19:00 | NUR ---
RECEIVED REPORT FROM DAY NURSE. PT RESTING IN BED WITH EYES CLOSED. CAREGIVER AT BEDSIDE. SCHULER CATH DRAINING CLEAR YELLOW URINE. NO NEEDS AT THIS TIME. CALL JIMENEZ IN REACH. WILL CONTINUE TO MONITOR.
[2018-08-27 19:45] VITALS: BP 153/94
--- NOTE | 2018-08-27 20:37 | NUR ---
PT RESTING IN BED WITH CAREGIVER AT BEDSIDE. PT RESPONDS APPROPRIATELY WHEN ASKED HOW SHE IS AND WHATS HER NAME. ASSESMENT COMPLETED AT THIS TIME. SCHULER DRAINING CLEAR YELLOW URINE. IV INFUDING WELL. NO NEEDS AT THIS TIME. CALL JIMENEZ IN REACH. WILL CONTINUE TO MONITOR.
[2018-08-27 23:44] VITALS: BP 178/76
--- NOTE | 2018-08-28 | NUR ---
PT RESTING IN NE WITH EYES CLOSED. PT REPOSITIONED IN BED. NO NEEDS AT THIS TIME FROM PT OR CAREGIVER. CALL JIMENEZ IN REACH. WILL CONTINUE TO MONITOR.
[2018-08-28 00:52] VITALS: BP 132/66
--- NOTE | 2018-08-28 04:00 | NUR ---
PT RESTING QUIETLY IN BED. NO S/S OF DISTRESS NOTED. CALL JIMENEZ IN REACH. CAREGIVER AT BED SIDE. WILL CONTINUE TO MONITOR.
[2018-08-28 05:15] LABS: ANION GAP 10 (6-22 (CALC)); BUN 20 mg/dL (8-23); BUN/CREATININE RATIO 19 (12-20 (CALC)); CARBON DIOXIDE 27 mmol/l (22-30); CHLORIDE 105 mmol/l (95-108); GFR 56 ML/MIN (>=60 (CALC)); GFR FOR AFR.AMER. > 60 ML/MIN (>=60 (CALC)); MAGNESIUM 1.9 mg/dL (1.6-2.3); POTASSIUM 4.5 mmol/l (3.5-5.1); SODIUM 137 mmol/l (137-146)
[2018-08-28 05:16] VITALS: BP 139/65
--- NOTE | 2018-08-28 06:09 | NUR ---
PT MEDICATED PER ORDER. VERYPLEASANT AND CHATTY. TOOK PO MEDS FINE WITH SOME ENSURE. MOUTH CARE PROVIDED. PT TOLERATED WELL. NO NEEDS AT THIS TIME. CALL JIMENEZ IN REACH. CAREGIVER AT [facility]. WILL CONTINUE TO MONITOR.
[2018-08-28 08:10] VITALS: BP 94/45
--- NOTE | 2018-08-28 08:10 | NUR ---
PT SITTING UP IN BED WITH EYES CLOSED; RESP EVEN AND UNLABORED ON ROOM AIR; VITALS OBTAINED; TELE IN PLACE; HARINI BALL DRAINING TO GRAVITY, CLEAR, YELLOW URINE; IVF INFUSING WELL, SITE APPEARS HEALTHY; EXPORT FREIGHT MANAGER AT BEDSIDE; WILL CONTINUE TO MONITOR
--- NOTE | 2018-08-28 11:08 | NUR ---
DR SANTOS AT BEDSIDE TO DISCUSS POC, CATHODE BUILDER AT BEDSIDE
--- NOTE | 2018-08-28 12:11 | NUR ---
PT SITTING UP IN BED APPEARS TO BE SLEEPING; RESP EVEN AND UNLABORED; IVF INFUSING WELL; SCHULER PATENT; WILL CONTINUE TO MONITOR,
[2018-08-28 12:52] VITALS: BP 84/57
--- NOTE | 2018-08-28 16:35 | NUR ---
PT HAS BEEN SLEEPING ALL DAY, BUT OPEN EYES WHEN VITALS TO BE OBTAINED; REPOSITION Q4H; RESP EVEN AND UNLABORED; SCHULER DRAINING TO GRAVITY CLEAR, YELLOW URINE; IVF FLOWING WELL, SITE APPEARS HEALTHY; NO S/S OF DISTRESS NOTED; WILL CONTINUE TO MONITOR.
--- NOTE | 2018-08-28 17:28 | NUR ---
PT NOW AWAKE, ALERT, TALKING, REPOSITION, JAMAR CARE, & ORAL CARE PROVIDED, CREAM APPLIED TO BUTTOCKS; TOLERATED WELL; IV PATENT D5-1/2 INFUSING AT 75CC/HR, SITE APPEARS HEALTHY; SCHULER DRAINING TO GRAVITY. MAINTENANCE MECHANIC ELEVATORS AT BED SIDE
[2018-08-28 18:24] VITALS: BP 97/56
--- NOTE | 2018-08-28 19:11 | NUR ---
RECEIVED REPORT FROM NURSE PAIGE PT RESTING PATIENT IS RESTING IN BED, NO DISCOMFORTS AT THIS TIME, PROPERTY FIELD ADJUSTER IN ROOM, CALL LIGHT IN REACH
[2018-08-28 19:24] VITALS: BP 151/67
--- NOTE | 2018-08-28 20:05 | NUR ---
PATIENT ALERT TO SELF WITH AN ONGOING IV OF D5 1/2 NS X 75 CC INFUSING WELL ON THE RAC, NO DISCOMFORTS NOTED, ACETYLENE CUTTER IN ROOM.
--- NOTE | 2018-08-28 23:58 | NUR ---
PATIENT A&O TO SELF, RESTING IN BED, WATCHING TV, VEGETABLE PREPARER IN ROOM, NO DISCOMFORTS NOTED AT THIS TIME, WITH AN ONGOING IVF OF D51/2 NS ON RAC G22, INFUSING WELL, WITH SCHULER CATHETER DRAINING YELLOW COLORED URINE. CALL LIGHT AT REACH
--- NOTE | 2018-08-29 | NUR ---
PT RESTING IN BED WITH EYES CLOSED. NO S/S OF DISTRESS NOTED. CALL JIMENEZ IN REACH. WILL CONTINUE TO MONITOR.
--- NOTE | 2018-08-29 04:10 | NUR ---
PATIENT RESTING IN BED, EYES OPEN, NO DISCOMFORTS NOTED AT THIS TIME, EVEN UNLABORED BREATHING CALL LIGHT WITHIN REACH.
[2018-08-29 04:32] VITALS: BP 130/66
--- NOTE | 2018-08-29 06:45 | NUR ---
PT REPORT RECIEVED FROM IVONNE SANCHEZ. PT RESTING. NO S/S OF DISTRESS. CALL LIGHT IN REACH. WILL CONTINUE TO MONITOR.
[2018-08-29 08:43] VITALS: BP 129/61
--- NOTE | 2018-08-29 08:43 | NUR ---
PT ALERT TO SELF. RESP EVEN AND UNLABORED. LUNG SOUNDS CLEAR. BOWEL SOUNDS ACTIVE X4. STRONG RADIAL AND PEDAL PULSES. #20 RAC D5 1/2 NS @75. SITE APPEARS HEALTHY. PT HAS A SCHULER, INTACT; DRAINING CLEAR YELLOW URINE TO GRAVITY. REDNESS TO BUTTOCK NOTED; TURNING PT EVERY 2 HOURS. NO C/O PAIN OR NEEDS. POC DISCUSSED W/ PT AND CAREGIVER. SAFETY PRECAUTIONS IN PLACE. CALL LIGHT IN REACH. WILL CONTINUE TO MONITOR.
--- NOTE | 2018-08-29 12:10 | NUR ---
PT IN BED RESTING. NO C/O PAIN OR NEEDS. SCHULER DRAINING FREELY. NO C/O PAIN OR NEEDS. CALL LIGHT IN REACH. WILL CONTINUE TO MONITOR.
[2018-08-29 15:53] VITALS: BP 126/68
--- NOTE | 2018-08-29 16:23 | NUR ---
PT RESTING IN BED. NO C/O PAIN OR NEEDS. CAREGIVER AT BEDSIDE. CALL LIGHT IN REACH. WILL CONTINUE TO MONITOR.
--- NOTE | 2018-08-29 19:00 | NUR ---
PT RESTING IN BED WITH CAREGIVER AT BEDSIDE. PT SEEMS AGGITATED. NO OTHER NEEDS AT THIS TIME. SCHULER DRAINING TO GRAVITY. IV INFUSING WELL
[2018-08-29 19:28] VITALS: BP 173/75
--- NOTE | 2018-08-29 20:55 | NUR ---
PT RESTING IN BED WITH CAREGIVER AT BEDSIDE. ASSESMENT COMPLETED AT THIS TIME. GERNERLIZED EDEMA NOTED. PT SEEMS AGGITATED. SCHULER DRAINING CLEAR YELLOW URINE. IV INFUSING WELL. NO NEEDS AT THIS TIME. CALL JIMENEZ IN REACH. WILL CONTINUE TO MONITOR.
--- NOTE | 2018-08-30 | NUR ---
PT RESTING QUIETLY IN BED. NO S/S OF DISTRESS NOTED. CALL JIMENEZ IN REACH. WILL CONTINUE TO MONITOR.
[2018-08-30 00:02] VITALS: BP 135/72
--- NOTE | 2018-08-30 03:45 | NUR ---
PT YELLING OUT AND CRYING. CAREGIVER ATTEMPTS TO CONSOUL PT WITH SUCESS. PT REPOSITIONED. NO OTHER NEEDS AT THIS TIME. CALL JIMENEZ IN REACH. WILL CONTINUE TO MONITOR.
[2018-08-30 08:20] VITALS: BP 84/51
--- NOTE | 2018-08-30 08:20 | NUR ---
ASSESSMENT IS COMPLETED: IV SITE IS FREE FROM REDNESS OR EDEMA. HR IS REG,PULSES ARE STRONG X4, ABD IS SOFT WITH ACTIVE BS, TELE MONITOR IN PLACE. CONTINUE TO OBSERVE AND MONITOR.
--- NOTE | 2018-08-30 12:30 | NUR ---
PT IS RESTING IN BED WITH NO DISTRESS NOTED. IV SITE IS FREE FROM REDNESS OR EDEMA. CONTINUE TO OSERBVE AND MONITOR. CAREGIVER IN THE ROOM.
[2018-08-30 16:05] VITALS: BP 140/71
--- NOTE | 2018-08-30 16:30 | NUR ---
PT IS RELAXING IN BED WITH NO DISTRESS NOTED. IV SITE IS FREE FROM REDNESS OR EDMEA.
--- NOTE | 2018-08-30 16:54 | NUR ---
CAREGIVER CAME TO THE DESK AND INFORMED STAFF THAT SHE WANTS TO GET UP TO THE BSC AND IN THE CHAIR.
--- NOTE | 2018-08-30 17:22 | NUR ---
PT REQUESTED TO GET OUT OF BED, ASISTED BY 4 STAFF. INTHE CHAIR. CAREGIVER IN THE ROOM.
--- NOTE | 2018-08-30 19:30 | NUR ---
REPORT FROM FACUNDO PETERSEN. PT SITTING UP IN CHAIR. IV SITE APPEARS HEALTHY. EDUCATED CAREGIVER AND PT OF IV CHANGE POLICY WILL ATTEMPT TO START NEW IV IF PT ALLOWS. DISCUSSED POC. PT DENIES ANY PAIN OR DISCOMFORT. CALL LIGHT WITHIN REACH. CAREGIVER REMAINS IN ROOM AT BEDSIDE. WILL CONTINUE TO MONITOR.
--- NOTE | 2018-08-30 19:35 | NUR ---
PT HAS BEEN PLACED BACK TO BED WITH 2 PERSON ASSIST. LARGE BM IN THE CHAIR. IS BEING CLEANED UP.
[2018-08-30 19:48] VITALS: BP 131/80
--- NOTE | 2018-08-30 23:34 | NUR ---
PT RESTING IN BED WITH EYES CLOSED. EASILY AROUSED. PT ALERT TO SELF. DENIES ANY PAIN. IV FLUIDS INFUSING WITHOUT DIFFICULTY. PT REFUSES TO ALLOW IMAGING ADMINISTRATOR TO START NEW IV AT THIS TIME, WILL ATTEMPT AT LATER TIME. CALL LIGHT WITHIN REACH. WILL CONTINUE TO MONITOR.
--- NOTE | 2018-08-31 04:40 | NUR ---
PT RESTING IN BED. REPOSITIONED AND PROVIDED ORAL CARE. PT REFUSED SECOND ATTEMPT TO REPLACE IV SITE. CURRENT SITE APPEARS HEALTHY AND INFUSING WITHOUT DIFFICULTY. CALL LIGHT WITHIN REACH. WILL CONTINUE TO MONITOR.
[2018-08-31 05:28] VITALS: BP 117/63
--- NOTE | 2018-08-31 06:45 | NUR ---
REPORT RECEIVED FROM HISTOLOGY SUPERVISOR NURSE; PT LAYING IN BED APPEARS TO BE SLEEPING, RESP EVEN AND UNLABORED.
[2018-08-31 09:44] VITALS: BP 116/51
--- NOTE | 2018-08-31 09:50 | NUR ---
ASSESSMENT COMPLETED; PT SITTING UP IN BED AWAKE, ALERT TO SELF AND ; RESP EVEN AND UNLABORED ON ROOM AIR; IVF D5-1/2 @ 75CC/HR; SITE APPEARS HEALTHY; PT DRINKING ADEQUATELY, SCHULER D/C, AM MEDS ADMINISTERED TOLERATED WELL; BED IN LOW LOCKED POSITION; WILL CONTINUE TO MONITOR.
--- NOTE | 2018-08-31 11:51 | NUR ---
PT SITTING UP IN BED, COTTON CONVERTER AT BEDSIDE; NEW BAG IVF HUNG, IV SITE APPEARS HEALTHY; NO S/S OF DISTRESS NOTED.
[2018-08-31 15:49] VITALS: BP 131/48
--- NOTE | 2018-08-31 16:09 | NUR ---
PT LAYING IN BED WITH EYES OPEN, EDITOR MANAGING NEWSPAPER STATED SHE'S SLEEPING; RESP EVEN AND UNLABOERD; IVF INFUSHING WITHOUT DIFFICULTY, SITE APPEARS HEALTHY;
[2018-08-31 18:56] VITALS: BP 148/76
--- NOTE | 2018-08-31 19:05 | NUR ---
REPORT FROM ROYAL PETERSEN. PT RESTING IN BED ALERT TO SELF. CAREGIVER REMAINS AT BEDSIDE. PT DENIES ANY PAIN OR DISCOMFORT. EDUCATED PT ON IV SITE AND ATTEMPTED TO REPLACE CURRENT SITE PT REFUSED AT THIS TIME. IV SITE APPEARS HEALTHY. RESPIRATIONS EVEN AND UNLABORED. DISCUSSED POC. CALL LIGHT WITHIN REACH. WILL CONTINUE TO MONITOR.
--- NOTE | 2018-08-31 22:45 | NUR ---
PT REPOSITIONED IN BED AND JAMAR CARE PROVIDED. PT INCONTINENT OF BLADDER, PT VOIDED A LARGE AMOUNT. CALL LIGHT WITHIN REACH. CAREGIVER REMAINS IN ROOM.
--- NOTE | 2018-09-01 01:23 | NUR ---
PT ANXIOUS YELLING OUT STAFF AND CAREGIVER NOT ABLE TO REDIRECT AT THIS TIME. PRN ATIVAN ADMINISTERED AT THIS TIME. WILL CONTINUE TO MONITOR.
[2018-09-01 04:40] VITALS: BP 100/42
--- NOTE | 2018-09-01 04:59 | NUR ---
PT RESTING NO DISTRESS NOTED. PARTIAL BED BATH AND JAMAR CARE PROVIDED. PT TOLERATED WELL. CALL LIGHT WITHIN REACH AND CAREGIVER REMAINS AT BEDSIDE. IV FLUIDS INFUSING WITHOUT DIFFICULTY. WILL CONTINUE TO MONITOR.
--- NOTE | 2018-09-01 07:05 | NUR ---
PT REPORT RECIEVED FROM NICOLA TELLEZ. PT RESTING. NO S/S OF DISTRESS. CAREGVIER AT BEDSIDE. CALL LIGHT IN REACH. WILL CONTINUE TO MONITOR.
[2018-09-01 07:57] VITALS: BP 90/42
--- NOTE | 2018-09-01 07:57 | NUR ---
PT ALERT TO SELF. RESP EVEN AND UNLABORED. LUNG SOUNDS CLEAR. BOWEL SOUNDS ACTIVE X4. STRONG RADIAL PULSES. WEAK PEDAL PULSES. #22 LAC D5 1/2 NS @75. SITE APPEARS HEALTHY. GENERALIZED EDEMA NOTED. SKIN INTACT. PT DENIES ANY PAIN OR NEEDS. POC DISCUSSED. SAFETY PRECAUTIONS IN PLACE. CALL LIGHT IN REACH. CAREGIVER AT BEDSIDE. WILL CONTINUE TO MONITOR.
--- NOTE | 2018-09-01 10:06 | NUR ---
Pt ws OOB in chair, IV beeping, nursing notified and addressed. Pt performed sitting LE and UEs ex activity x 10-20 reps. Pt transferred to bed with CGA assist and verbal cues. Stood from chair and bed with min/mod assist. She ambulated 2 x 12' with CGA/RW and verbal cues to stand tall. She returned to chair and positioned with call davies/tray in reach. Nursing aware.
[2018-09-01 11:32] VITALS: BP 126/46
--- NOTE | 2018-09-01 12:11 | NUR ---
PT EATING LUNCH. NO C/O PAIN OR NEEDS. AT BEDSIDE. CALL LIGHT IN REACH. WILL CONTINUE TO MONITOR.
[2018-09-01 16:04] VITALS: BP 132/70
--- NOTE | 2018-09-01 16:05 | NUR ---
PT RESTING IN BED. NO C/O PAIN OR NEEDS. IV INFUSING FREELY; SITE APPEARS HEALTHY. CAREGIVER AT BEDSIDE. CALL LIGHT IN REACH. WILL CONTINUE TO MONITOR.
--- NOTE | 2018-09-01 17:41 | NUR ---
PATIENT HAS BEEN MONITORED THROUGHOUT THE WEEK AND HAS NOT PARTICIPATED IN THERAPY DUE TO HER REFUSAL, SLEEPINESS ETC. WE HAVE SPOKEN WITH NSG AND INFORMED THEM TO USE BOB LIFT FOR OOB TRANSFERS NEEDED.
[2018-09-01 18:54] VITALS: BP 158/75
--- NOTE | 2018-09-01 19:10 | NUR ---
PT UPRIGHT IN BED W/CAREGIVER AT BEDSIDE. NO S/O DISTRESS AT THIS TIME. WILL FOLLOW-UP WITH ASSESSEMENT AND MEDICATIONS ORDERED.
--- NOTE | 2018-09-01 23:04 | NUR ---
PT CLEANED OF INCONTINENT URINE BY AIDES AND TURNED/REPOSITIONED. LUNG SOUNDS ARE DIM, ABD ACTIVE BOWEL SOUNDS NON-TENDER. PT REMAINED FAIRLY CALM THROUGHOUT ASSESSMENT. MURAL PAINTER WAS AT BEDSIDE AND STEPPED OUT DURING CARE.
[2018-09-02 04:52] LABS: HEMATOCRIT 32.9 % (37.0-47.0); HEMOGLOBIN 10.4 g/dl (12.0-16.0); MEAN CELL VOLUME 100.3 fL CALC (80.0-100.0); MEAN CORPUSCULAR HGB 31.7 pG CALC (26.0-32.0); MEAN CORPUSCULAR HGB CONC 31.6 g/L CALC (32.0-36.0); RED BLOOD COUNT 3.28 mill/uL (4.20-5.60); RED CELL DISTRI WIDTH 15.5 % (11.5-15.5)
[2018-09-02 04:56] VITALS: BP 108/60
--- NOTE | 2018-09-02 05:08 | NUR ---
PT MEDICATED ORDERS PROVIDE. ORAL MOUTH CARE PROVIDED. PT IS COUGHING/SOUNDS CONGESTED, LUNG SOUNDS CLEAR AT THIS TIME. AIDES ARE IN W/PT OBTAINING V/S AND CLEANING OF INCONTINENT URINE.
[2018-09-02 08:33] VITALS: BP 124/65
--- NOTE | 2018-09-02 08:33 | NUR ---
PT ALERT TO SELF. RESP EVEN AND UNLABORED. LUNG SOUNDS CLEAR. BOWEL SOUNDS ACTIVE X4. STRONG RADIAL PULSES, WEAK PEDAL PULSES. GENERALIZED EDEMA NOTED. #22 LAC D5 1/2 NS @75. SITE APPEARS HEALTHY. PT HAS SOME REDNESS TO BUTTOCK; Q2 TURN, BARRIER CREAM APPLIED. SKIN INTACT. PT DENIES ANY PAIN OR NEEDS. POC DISCUSSED. SAFETY PRECAUTIONS IN PLACE. CALL LIGHT IN REACH. CAREGIVER AT BEDSIDE. CALL LIGHT IN REACH. WILL CONTINUE TO MONITOR.
--- NOTE | 2018-09-02 12:02 | NUR ---
PT EATING LUNCH W/ ASSISTANCE OF CAREGIVER. NO C/O PAIN OR NEEDS. CALL LIGHT IN REACH. WILL CONTINUE TO MONITOR.
--- NOTE | 2018-09-02 16:05 | NUR ---
PT RESTING IN BED. NO C/O PAIN OR NEEDS. REPOSITIONING PT. CAREGIVER AT BEDSIDE. CALL LIGHT IN REACH. WILL CONTINUE TO MONITOR.
[2018-09-02 16:48] VITALS: BP 114/63
[2018-09-02 19:00] VITALS: BP 132/72
--- NOTE | 2018-09-02 19:30 | NUR ---
PATIENT RESTING IN BED WITH EYES CLOSED AND HOB SLIGHTLY ELEVATED. APPEARS SLEEPING-RESP ARE EVEN AND UNLABORED. CAREGIVER AT BEDSIDE. IVF D51/2NS PATENT AND INFUSING AT 75CC/HR. SITE APPEARS HEALTHY. CALL LIGHT IN REACH. WILL CONT TO MONITOR.
--- NOTE | 2018-09-03 00:51 | NUR ---
PATIENT APPEARS SLEEPING WITH EYES CLOSED-HOB SLIGHTLY ELEVATED. CAREGIVER AT BEDSIDE. CALL LIGHT IN REACH. WILL CONT TO MONITOR.
--- NOTE | 2018-09-03 03:22 | NUR ---
PATIENT APPEARS SLEEPING WITH EYES CLOSED-HOB SLIGHTLY ELEVATED. CAREGIVER AT BEDSIDE. CALL LIGHT IN REACH. WILL CONT TO MONITOR.
--- NOTE | 2018-09-03 07:05 | NUR ---
PT REPORT RECIEVED FROM IVONNE MCLEAN. PT RESTING. NO S/S OF DISTRESS. CALL LIGHT IN REACH. WILL CONTINUE TO MONITOR.
[2018-09-03 08:24] VITALS: BP 108/70
--- NOTE | 2018-09-03 08:24 | NUR ---
PT ALERT TO SELF. NONPRODUCTIVE COUGH NOTED. RESP SHALLOW. LUNG SOUNDS CLEAR. BOWEL SOUNDS ACTIVE X4. STRONG RADIAL, WEAK PEDAL PULSES. #22 LAC D5 1/2 NS @75. SITE APPEARS HEALTHY. GENERALIZED EDEMA NOTED. PT HAS A ON BRIEF FOR HER INCONTINENCE. NO C/O PAIN OR NEEDS. SAFETY PRECAUTIONS IN PLACE. CAREGIVER AT BEDSIDE. CALL LIGHT IN REACH. WILL CONTINUE TO MONITOR.
--- NOTE | 2018-09-03 12:24 | NUR ---
PT RESTING IN BED. NO C/O PAIN OR NEEDS. CALL LIGHT IN REACH. WILL CONTINUE TO MONITOR.
--- NOTE | 2018-09-03 15:58 | NUR ---
PT RESTING IN BED. NO C/O PAIN OR NEEDS. CALL LIGHT IN REACH. CAREGIVER AT BEDSIDE. WILL CONTINUE TO MONITOR.
[2018-09-03 16:05] VITALS: BP 112/68
--- NOTE | 2018-09-03 19:00 | NUR ---
Patient alert to self awake, resting in bed on semi fowlers position, with even shallow breathing, care given in room,
--- NOTE | 2018-09-03 20:00 | NUR ---
PATIENT RESTING IN BED, AWAKE, ALERT TO SELF WITH AN ONGOING IVF OF D51/2 NACL INFUSISING WELL ON LAC @75CC/HR. LAST BM 09/02, WITH EVEN SHALLOW BREATHING, SAFETY SUPERVISOR IN ROOM CALL LIGHT AT REACH
--- NOTE | 2018-09-03 20:00 | NUR ---
PATIENT AWAKE, CONFUSIONS NOTED, STAFF ANTICIPATES NEEDS, EVEN UNLABORED BREATHING, BEED ALARM IN PLACE WILL CONTINUE TO MONITOR.
[2018-09-03 20:17] VITALS: BP 122/69
--- NOTE | 2018-09-04 00:54 | NUR ---
PATIENT AWAKE RESTING IN BED, WATCHING TV AT THIS TIME, NO DISCOMFORTS NOTED AT THIS TIME, WITH EVEN SHALLOW BREATHING, INCONTINENT CARE PROVIDED, BENCH WORKER APPRENTICE IN ROOM,
--- NOTE | 2018-09-04 04:05 | NUR ---
PATIENT APPEARS TO BE RESTING IN BED, WITH EVEN SHALLOW BREATHING, NO DISCOMFORTS NOTED, ASSISTANT HVAC MECHANIC IN ROOM, PT TURNED AND REPOSITIONED, CALL LIGTH AT REACH
[2018-09-04 05:25] VITALS: BP 124/66
--- NOTE | 2018-09-04 06:58 | NUR ---
REPORT RECEIVED FROM NIGHT NURSE; PT LAYING IN BED AWAKE; RESP EVEN AND UNLABORED; BLOOD BANK MANAGER AT BEDSIDE
[2018-09-04 09:08] VITALS: BP 120/70
--- NOTE | 2018-09-04 09:17 | NUR ---
ASSESSMENT COMPLETED; PT SITTING UP IN BED WATCHING TV; BREATHING SHALLOW ON ROOM AIR; IVF D5-1/2 @75CC/HR, SITE APPEARS HEALTHY; ALERT TO SELF; HEADLIGHT ADJUSTER AT BED SIDE; BED IN LOW LOCKED POSITION. NO S/S OF DISTRESS NOTED; WILL CONTINUE TO MONITOR.
--- NOTE | 2018-09-04 11:33 | NUR ---
D/C INSTRUCTIONS GIVEN TO MICRO COMPUTER DATA PROCESSOR; IV REMOVED CATH INTACT; JAMAR CARE DONE;
--- NOTE | 2018-09-04 11:51 | NUR ---
Discharge instructions given. Patient verbalizes understanding of same. Discharged in stable condition via Wheel[facility] to [facility] with *Other. All belongings sent with pt.
== END 2018-09-04 11:51 ==
LOC: ED 11:27 → ED-I 11:45 → ED 11:45 → ED-I 13:01 → ED 13:40 → MS2 13:41 → ED-I 13:41 → MS2 18:55
PROVIDERS: Family Medicine; Nurse Practitioner Family; ADMIT Internal Medicine Nephrology; ATTEND Internal Medicine Nephrology
PROC: 0T9B70Z Drainage of Bladder with Drainage Device, Via Natural or Artificial Opening (ICD-10-PCS; principal; 2018-08-24)
DX: G93.41 Metabolic encephalopathy (principal); R62.7 Adult failure to thrive; Q90.9 Down syndrome, unspecified; G30.9 Alzheimer's disease, unspecified; F02.80 Dementia in other diseases classified elsewhere, unspecified severity, without behavioral disturbance, psychotic disturbance, mood disturbance, and anxiety; I12.9 Hypertensive chronic kidney disease with stage 1 through stage 4 chronic kidney disease, or unspecified chronic kidney disease; N18.3 Chronic kidney disease, stage 3 (moderate); E55.9 Vitamin D deficiency, unspecified; E03.9 Hypothyroidism, unspecified; E78.5 Hyperlipidemia, unspecified; N17.9 Acute kidney failure, unspecified; E86.0 Dehydration; S50.811A Abrasion of right forearm, initial encounter; X58.XXXA Exposure to other specified factors, initial encounter; T38.1X6A Underdosing of thyroid hormones and substitutes, initial encounter; Z68.41 Body mass index [BMI] 40.0-44.9, adult; R60.0 Localized edema
CPT/HCPCS: J1650; J2060